=== PATIENT | male | born 1970 | race Caucasian/White ===

== ENCOUNTER → 2020-06-11 09:45 | Outpatient (CLI) | payer OTHER, SELFPAY ==
--- NOTE | ~2020-06-11 | XR_ITS ---
EXAMINATION: XR_[id number]_CR DATE: 06/11/2020 09:58 INDICATION: Neck pain. TECHNIQUE: 4 views of cervical spine were obtained. COMPARISON: None. FINDINGS: There is 4 degrees levocurvature of cervicothoracic spine. There is 2 mm retrolisthesis of C3 on C4, C4 on C5, and C5 on C6. Vertebral body heights are normal. There is moderately decreased di sc height from C3-C4 through C5-C6. There is multilevel uncovertebral joint osteoarthritis, severe bi laterally at C3-C4 and C5-C6. There is multilevel facet joint osteoarthritis, severe on the left at C 2-C3. There is mild central canal stenosis at C3-C4, C4-C5, and C5-C6. No prevertebral soft tissue sw elling. IMPRESSION: 1. Moderate cervical spondylosis. Reviewed, dictated and finalized at location A. D SPECIALIST
== END ==
PROVIDERS: PCP Family Medicine; Visit Provider Physician Assistant
DX: M47.892 Other spondylosis, cervical region (principal)
CPT/HCPCS: 72040

== ENCOUNTER → 2020-06-23 15:43 | Outpatient (CLI) | payer OTHER, SELFPAY ==
--- NOTE | ~2020-06-23 | MR_ITS ---
EXAMINATION: MR cervical spine wo con DATE: 06/23/2020 16:53 INDICATION: Neck pain. TECHNIQUE: Magnetic resonance imaging (MRI) of the cervical spine was performed without intravenous c ontrast. Sequences included sagittal T2-weighted FSE, sagittal STIR FSE, sagittal T1-weighted FSE, ax ial MERGE, and axial T2-weighted FSE. COMPARISON: Cervical spine radiographs 06/11/2020 FINDINGS: There is 3 degrees levocurvature of cervical spine. There is 2 mm retrolisthesis of C3 on C 4, C4 on C5, and C5 on C6. Vertebral body heights are normal. There is moderately decreased disc heig ht at C3-C4 and C4-C5, severely decreased disc height at C5-C6, and mildly decreased disc height at C 6-C7. The spinal cord signal intensity is normal. The following disc levels are specifically discusse d: C2-C3: The disc does not extend beyond the endplate margin. There is no uncovertebral joint osteoarth ritis. There is mild right and severe left facet joint osteoarthritis. There is mild left neural fora harley stenosis. There is no central canal stenosis. C3-C4: The disc is bulging. There is moderate bilateral uncovertebral joint osteoarthritis. There is mild bilateral facet joint osteoarthritis. There is no neural foraminal stenosis. There is no central canal stenosis. C4-C5: The disc is bulging. There is moderate bilateral uncovertebral joint osteoarthritis. There is no facet joint osteoarthritis. There is mild bilateral neural foraminal stenosis. There is mild centr al canal stenosis with ventral indentation of spinal cord. C5-C6: The disc is bulging. There is severe bilateral uncovertebral joint osteoarthritis. There is no facet joint osteoarthritis. There is mild bilateral neural foraminal stenosis. There is mild central canal stenosis. C6-C7: There is a central extrusion. There is mild bilateral uncovertebral joint osteoarthritis. Ther e is mild right facet joint osteoarthritis. There is mild left neural foraminal stenosis. There is mi ld central canal stenosis. C7-T1: The disc does not extend beyond the endplate margin. There is no uncovertebral joint osteoarth ritis. There is mild bilateral facet joint osteoarthritis. There is no neural foraminal stenosis. The re is no central canal stenosis. IMPRESSION: 1. Severe cervical spondylosis. Reviewed, dictated and finalized at location B. TER [employer]
== END ==
PROVIDERS: PCP Family Medicine; Visit Provider Physician Assistant
DX: M47.892 Other spondylosis, cervical region (principal)
CPT/HCPCS: 72141

== ENCOUNTER 2024-09-08 08:36 | Outpatient (CLI) | payer OTHER, SELFPAY ==
--- NOTE | ~2024-09-08 | XR_ITS ---
EXAMINATION: XR hip RT 2V w AP pelvis DATE: 09/08/2024 08:53 INDICATION: Right hip pain. Low back pain, unspecified. TECHNIQUE: An anteroposterior view of the pelvis and 2 views of right hip were obtained. COMPARISON: None. FINDINGS: Bone alignment is normal. No acute fracture. There is an old fracture deformity of right in ferior pubic ramus. There is mild osteoarthritis of the hips. There is at least moderate lumbar spond ylosis. IMPRESSION: 1. Mild osteoarthritis of the hips. Reviewed, dictated and finalized at location A. H MACHINE [employer]TER
== END 2024-09-08 08:37 | disposition home or self-care (01) ==
PROVIDERS: PCP Nurse Practitioner Family; Visit Provider Nurse Practitioner Family
DX: M16.0 Bilateral primary osteoarthritis of hip (principal)
CPT/HCPCS: 73502